=== PATIENT | male | born 1960 | race Two or more races ===

== ENCOUNTER 2018-09-06 13:23 | Emergency (ER) | payer MEDICAID ==
[~2018-09-06] VITALS: Ht 170.2 cm; Wt 79.4 kg
[2018-09-06 13:25] VITALS: BP 142/64
--- NOTE | 2018-09-06 13:25 | NUR ---
ED Nurse Note: PT BROUGHT IN BY [facility] FROM HOME. AOX4. PT C/O CHRONIC RIGHT SHOULDER PAIN, 01/11, RADIATING TO NECK AND BACK. PT STATES HE WAS TAKING NORCO BUT PRESCRIBING PHYSICIAN STOPPED THE MEDICATION 1 MONTH AGO. PT DENIES ANY RECENT INJURY OR TRAUMA. FULL ROM OF ALL EXTREMITIES AND NECK. CIRCULATION AND SENSATION INTACT.
[2018-09-06] MEDS ORDERED: Ketorolac 30mg Inj IM ONE (14:00)
--- NOTE | 2018-09-06 14:14 | Emergency Room Report ---
History of Present Illness General Chief Complaint: Pain Source: Patient Present Illness HPI 57-year-old male with history of chronic right shoulder pain brought in by paramedics complaining of increased pain in the right side of neck and shoulder. Patient reports that he had a surgery done in his right shoulder 3 years ago and was under treatment of his surgeon he used to be on hydrocodone and was recently weaned off of hydrocodone and put on Cymbalta. he was at his psychiatrist's office today and requested more pain medication as he reports that Cymbalta is not helping with his pain psychiatrist refused to write for any pain medication and sent him to the emergency room. Patient denies any new injury, denies pain radiation, denies type chest pain, shortness of breath, palpitation, tingling and numbness. Patient reports that ibuprofen is not helping with his pain reporting the pain is 7 out of 10 and constant. Patient has never been seen by pain management. Patient is in no apparent distress Allergies: Coded Allergies: No Known Allergies (Unverified , 09/06/18) Patient History Past Medical History: see triage record Past Surgical History: unable to obtain Pertinent Family History: none Immunizations: UTD Reviewed Nursing Documentation: PMH: Agreed; PSxH: Agreed Nursing Documentation-PMH Past Medical History: Deferred Review of Systems All Other Systems: negative except mentioned in HPI Physical Exam Vital Signs Date Time Temp Pulse Resp B/P (MAP) Pulse Ox O2 Delivery O2 Flow Rate FiO2 09/06/18 13:20 98.1 67 14 154/59 (90) 99 Room Air Sp02 EP Interpretation: reviewed, normal General Appearance: normal inspection, well appearing, no apparent distress Head: normocephalic, atraumatic Eyes: bilateral eye normal inspection, bilateral eye PERRL ENT: normal ENT inspection, hearing grossly normal, normal pharynx Neck: normal inspection, full range of motion, supple Respiratory: normal inspection, chest non-tender, lungs clear, no wheezing Cardiovascular #1: normal inspection, regular rate, rhythm, no murmur Gastrointestinal: normal inspection, non tender, soft Genitourinary: no CVA tenderness Musculoskeletal: normal inspection, back normal, digits/nails normal, gait/ station normal Neurologic: normal inspection, alert, oriented x3, responsive Psychiatric: normal inspection, judgement/insight normal Skin: normal inspection, normal color, no rash, warm/dry, palpation normal, well hydrated Lymphatic: normal inspection, no adenopathy, axilla node tender (R) Medical Decision Making PA Attestation All my diagnosis and treatment plans were reviewed ad discussed with my supervising physician Dr. Gutierrez Diagnostic Impression: Primary Impression: Chronic right shoulder pain ER Course 57-year-old male with history of chronic right shoulder pain brought in by paramedics complaining of increased pain in the right side of neck and shoulder. Patient reports that he had a surgery done in his right shoulder 3 years ago and was under treatment of his surgeon he used to be on hydrocodone and was recently weaned off of hydrocodone and put on Cymbalta. he was at his psychiatrist's office today and requested more pain medication as he reports that Cymbalta is not helping with his pain psychiatrist refused to write for any pain medication and sent him to the emergency room. Patient denies any new injury, denies pain radiation, denies type chest pain, shortness of breath, palpitation, tingling and numbness. Patient reports that ibuprofen is not helping with his pain reporting the pain is 7 out of 10 and constant. Patient has never been seen by pain management. Patient is in no apparent distress Ddx considered but are not limited to : shoulder strain, sprain, fracture, chronic shoulder pain Vital signs: are WNL, pt. is afebrile H&PE are most consistent with: Chronic right shoulder pain ORDERS: Toradol 30 mg IM ED INTERVENTIONS: Toradol 30 mg DISCHARGE: At this time pt. is stable for d/c to home. Will provide printed patient care instructions, and any necessary prescriptions. Care plan and follow up instructions have been discussed with the patient prior to discharge. Patient to follow-up with pain management and primary care for management of chronic pain I offered to write a prescription for ibuprofen patient refused and says he has ibuprofen at home. No further imaging needed this is a chronic issue and no acute injury has occurred Last Vital Signs Date Time Temp Pulse Resp B/P (MAP) Pulse Ox O2 Delivery O2 Flow Rate FiO2 09/06/18 13:25 98.2 72 16 142/64 100 Room Air Disposition: HOME, SELF-CARE Condition: Stable Patient Instructions: Shoulder Pain, [id number] Additional Instructions: Although with a primary care provider for referral to pain management no narcotics can be restarted as you were recently stopped taking them Davida Carrasco Sep 06, 2018 14:14
[2018-09-06 14:17] VITALS: BP 138/68
--- NOTE | 2018-09-06 14:17 | NUR ---
ED Nurse Note: PT LAYING PEACEFULLY IN BED IN NAD. AOX4. DISCHARGE PAPERWORK EXPLAINED TO PT. PT VERBALIZES UNDERSTANDING AND ALL QUESTIONS ANSWERED. DISCHARGE PAPERWORK GIVEN TO PT AND ID WRISTBAND REMOVED. PT WALKED OUT OF ER WITH STEADY GAIT AND ALL BELONGINGS.
== END 2018-09-06 14:18 | disposition home or self-care (01) ==
LOC: EDBD 13:23 → EMR 14:08
DX: M25.511 Pain in right shoulder (principal); G89.29 Other chronic pain; M54.2 Cervicalgia
CPT/HCPCS: 96372; 99283; J1885